=== PATIENT | male | born 1975 | race Caucasian/White ===

== ENCOUNTER 2018-08-02 06:28 | Day surgery (SDC) | payer OTHER ==
[2018-08-01 08:45] VITALS: BMI 30.7
[2018-08-02] MEDS ORDERED: ALPRAZolam 0.5 MG TAB PO PRN (06:43)
[2018-08-02] MEDS ORDERED: NITROGLYCERIN SL TABS 0.4 MG TAB SUBLINGUAL PRN (06:43)
[2018-08-02] MEDS ORDERED: ALPRAZolam 0.25 MG TAB PO PRN (06:43)
[2018-08-02] MEDS ORDERED: SODIUM CHLORIDE 0.9% 1,000 ML in EMPTY BAG 1 BAG IV ONE (06:43)
[2018-08-02] MEDS ORDERED: ASPIRIN 325 MG TAB PO ONE (07:00)
[2018-08-02] MEDS ORDERED: ATORVASTATIN 80 MG TAB PO ONE (07:00)
[2018-08-02] MEDS ORDERED: ALPRAZolam 0.25 MG TAB PO ONE (07:17)
[2018-08-02 07:21] LABS: Basophils # (A) 0.1 k/uL (0-0.2); Basophils % (A) 1 %; Eosinophils # (A) 0.2 k/uL (0-0.7); Eosinophils % (A) 3 %; HCT 45.3 % (39.0-53.0); HGB 15.1 gm/dL (13.0-17.5); Lymphocytes # (A) 2.4 k/uL (1.0-4.8); Lymphocytes % (A) 29 %; MCH 29.1 pg (25.0-35.0); MCHC 33.4 g/dL (31.0-37.0); MCV 87.1 fL (80.0-100.0); Mean Platelet Volume 6.4; Monocytes # (A) 0.5 k/uL (0-1.0); Monocytes % (A) 7 %; Neutrophils # (A) 4.9 k/uL (1.3-7.7); Neutrophils % (A) 60 %; Platelet Count 296 k/uL (150-450); RDW 14.1 % (11.5-15.5); WBC 8.3 k/uL (3.8-10.6)
[2018-08-02] MEDS ORDERED: fentaNYL (PF) 50 MCG/ML 2 ML AMP ONE (07:21)
[2018-08-02] MEDS ORDERED: LIDOCAINE 1% INJ 10MG/ML (20 ML MDV) ONE (07:21)
[2018-08-02 07:23] LABS: Anion Gap 9 mmol/L; Blood Urea Nitrogen 17 mg/dL (9-20); Calcium 9.5 mg/dL (8.4-10.2); Carbon Dioxide 24 mmol/L (22-30); Chloride 107 mmol/L (98-107); Glucose 112 mg/dL (74-99); Potassium 4.5 mmol/L (3.5-5.1); Sodium 140 mmol/L (137-145)
[2018-08-02 07:39] VITALS: TEMP 97.8
[2018-08-02] MEDS ORDERED: MIDAZOLAM 2 MG/2 ML VIAL IV ONE ×2 (07:43)
[2018-08-02] MEDS ORDERED: fentaNYL (PF) 50 MCG/ML 2 ML AMP IV ONE (07:43)
[2018-08-02] MEDS ORDERED: LIDOCAINE 1% INJ 10MG/ML (20 ML MDV) SQ ONE (07:44)
[2018-08-02] MEDS ORDERED: IOPAMIDOL-370 125ML BTL INJ ONE (07:54)
[2018-08-02] MEDS ORDERED: RX INFO: IV CONTRAST WAS GIVEN 1 EACH MISC MISCELLANE PRN (08:02)
[2018-08-02] MEDS ORDERED: SODIUM CHLORIDE 0.9% 1,000 ML IV SCH (08:15)
--- NOTE | 2018-08-02 08:25 | CC ---
CARDIAC CATHETERIZATION REPORT INDICATION: Chest pain with abnormal stress test. PROCEDURE NOTE: After obtaining informed consent, left heart catheterization and coronary angiogram were performed via the right femoral artery using standard Wilfrid catheters. The patient tolerated the procedure well without any obvious immediate complications. A femoral angiogram was performed and decision was made for manual hemostasis. Patient received moderate conscious sedation. Total sedation time was 14 minutes. FINDINGS: 1. HEMODYNAMICS: Left ventricular end-diastolic pressure is 12 mm. There is no significant gradient across the aortic valve. 2. LEFT VENTRICULOGRAM: Left ventriculogram is not performed. 3. ANGIOGRAPHIC DATA: Left main coronary artery: Left main coronary artery is a normal-sized vessel and is free of stenosis. Divides into left anterior descending coronary artery and circumflex coronary artery. LAD and its branches and circumflex coronary artery and its branches are free of significant stenosis. Right coronary artery is a large dominant vessel and is free of significant disease. CONCLUSIONS: 1. Normal coronary arteries. 2. Normal left ventricular end-diastolic pressure. PLAN: I reviewed test results with the patient and told him that his symptoms are noncardiac in origin and the stress test is a false positive stress test. MMODL / IJN: [id number] /
[2018-08-02 09:30] VITALS: PULSE 70
[2018-08-02 15:34] VITALS: BP 120/70; RESP 18
== END 2018-08-02 15:00 | disposition home or self-care (01) ==
LOC: CATHCVL 06:28
PROVIDERS: ATTEND Internal Medicine Cardiovascular Disease
DX: R07.2 Precordial pain (principal); R94.39 Abnormal result of other cardiovascular function study; E78.2 Mixed hyperlipidemia; F17.210 Nicotine dependence, cigarettes, uncomplicated; Z79.82 Long term (current) use of aspirin; Z79.899 Other long term (current) drug therapy; Z82.49 Family history of ischemic heart disease and other diseases of the circulatory system
CPT/HCPCS: 93458; 80048; 85025; C1894; C1769; J2250; J2001; J3010; Q9967

== ENCOUNTER → 2018-10-18 | Outpatient (CLI) | payer OTHER | LOC: LABWHC1 09:53 | PROVIDERS: ATTEND Internal Medicine Cardiovascular Disease | DX: E78.2 Mixed hyperlipidemia (principal) | CPT/HCPCS: 36415; 80061; 84450; 84460 ==

== ENCOUNTER → 2018-11-28 | Outpatient (CLI) | payer OTHER ==
[2018-11-28 20:47] LABS: ALT 26 U/L (10-49); AST 24 U/L (14-35)
== END ==
LOC: LABWHC1 10:23
PROVIDERS: ATTEND Internal Medicine Cardiovascular Disease
DX: E78.2 Mixed hyperlipidemia (principal)
CPT/HCPCS: 36415; 84450; 84460

== ENCOUNTER → 2020-02-10 | Outpatient (CLI) | payer OTHER ==
[2020-02-10 17:56] LABS: Chol/HDL Ratio 5.17
== END | disposition home or self-care (01) ==
LOC: LABWHC1 09:46
PROVIDERS: ATTEND Internal Medicine Cardiovascular Disease
DX: E78.2 Mixed hyperlipidemia (principal)
CPT/HCPCS: 36415; 80061; 84450; 84460

== ENCOUNTER 2024-03-03 14:57 | Emergency (ER) | payer OTHER ==
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
[2024-03-03 15:21] VITALS: RESP 18
--- NOTE | 2024-03-03 15:43 | XR ---
EXAMINATION TYPE: XR tibia fibula RT DATE OF EXAM: 03/03/2024 CLINICAL HISTORY: pain TECHNIQUE: AP and lateral images of the right tibia and fibula are obtained. COMPARISON: None. FINDINGS: There is no acute fracture/dislocation evident. The joint spaces appear within normal nation its. The overlying soft tissue appears unremarkable. IMPRESSION: There is no acute fracture or dislocation seen. ICD 10 NO FRACTURE, INITIAL EVALUATION
[2024-03-03 16:09] VITALS: BP 128/68; PULSE 72; TEMP 98.1
== END 2024-03-03 16:08 | disposition home or self-care (01) ==
LOC: EC 14:57
DX: S90.32XA Contusion of left foot, initial encounter (principal); F12.90 Cannabis use, unspecified, uncomplicated; W51.XXXA Accidental striking against or bumped into by another person, initial encounter
CPT/HCPCS: 99283

== ENCOUNTER 2024-11-27 08:30 | Emergency (ER) | payer OTHER ==
--- NOTE | 2024-11-27 08:55 | ED ---
General Adult HPI - General Chief complaint: Back Pain/Injury Stated complaint: low back pain,sliver in finger Time Seen by Provider: 11/27/24 08:32 Source: patient, RN notes reviewed, old records reviewed Mode of arrival: ambulatory Limitations: no limitations - History of Present Illness Initial comments: 9-year-old male presenting with low back pain which was initially bilaterally has isolated to the left side after moving a heavy recliner. This was about 5 or 6 days ago. Patient has had persistent pain shooting into the left leg. There was no injury or fall. Denies bowel or bladder incontinence. Denies fever. Secondary complaint of a wood sliver in his right fourth digit which has been present for the past 1 year. Patient is requesting this be removed. - Related Data Home Medications Medication Instructions Recorded Confirmed Aspirin [Adult Low Dose Aspirin EC] 81 mg PO DAILY 08/01/18 08/02/18 Atorvastatin [Lipitor] 40 mg PO DAILY 08/01/18 08/01/18 Metoprolol Succinate (ER) [Toprol 25 mg PO DAILY 08/01/18 08/01/18 Xl] Previous Rx's Medication Instructions Recorded Cephalexin [Keflex] 500 mg PO Q12HR #10 cap 11/27/24 Cyclobenzaprine [Flexeril] 10 mg PO HS #7 tab 11/27/24 Ibuprofen [Motrin] 600 mg PO Q8HR PRN #24 tab 11/27/24 Allergies Allergy/AdvReac Type Severity Reaction Status Date / Time No Known Allergies Allergy Verified 11/27/24 08:34 Review of Systems ROS Statement: Those systems with pertinent positive or pertinent negative responses have been documented in the HPI. ROS Other: All systems not noted in ROS Statement are negative. Past Medical History Past Medical History: Hyperlipidemia, Sleep Apnea/CPAP/BIPAP Additional Past Medical History / Comment(s): Right BBB,uses cpap History of Any Multi-Drug Resistant Organisms: None Reported Past Surgical History: Orthopedic Surgery Additional Past Surgical History / Comment(s): rt hand severed tendons,lt arm fx radius,ulna with plates and screws Past Anesthesia/Blood Transfusion Reactions: Previous Problems w/ Anesthesia, Postoperative Nausea & Vomiting (PONV) Additional Past Anesthesia/Blood Transfusion Reaction / Comment(s): hard time waking up after anesthesia Past Psychological History: No Psychological Hx Reported Past Alcohol Use History: Rare Past Drug Use History: Marijuana - Past Family History Mother Family Medical History: Myocardial Infarction ([place]) General Exam Limitations: no limitations General appearance: alert, in no apparent distress Head exam: Present: atraumatic, normocephalic Eye exam: Present: normal appearance, PERRL ENT exam: Present: normal exam Neck exam: Present: normal inspection. Absent: tenderness, meningismus Respiratory exam: Present: normal lung sounds bilaterally. Absent: respiratory distress, wheezes Cardiovascular Exam: Present: regular rate, normal rhythm GI/Abdominal exam: Present: soft. Absent: distended, tenderness, guarding Extremities exam: Present: other (Palpable foreign body in the right fourth digit distal phalanx no erythema no fluctuance, no induration) Back exam: Present: normal inspection. Absent: paraspinal tenderness, vertebral tenderness Neurological exam: Present: alert, oriented X3, CN II-XII intact. Absent: motor sensory deficit Psychiatric exam: Present: normal affect, normal mood Skin exam: Present: warm, dry, intact Course Vital Signs 11/27/24 08:32 Temperature 97.7 F Pulse Rate 99 Respiratory 22 Rate Blood Pressure 139/80 O2 Sat by Pulse 100 Oximetry Medical Decision Making - Medical Decision Making Was pt. sent in by a medical professional or institution (, PA, GRINDER SET UP OPERATOR, urgent care, hospital, or skilled nursing...) When possible be specific @ -No Did you speak to anyone other than the patient for history (EMS, parent, family, police, friend...)? What history was obtained from this source @ -No Did you review nursing and triage notes (agree or disagree)? Why? @ -I reviewed and agree with nursing and triage notes Were old charts reviewed (outside hosp., previous admission, EMS record, old EKG, old radiological studies, urgent care reports/EKG's, skilled nursing records)? Report findings @ -No old charts were reviewed Differential Back Pain: Strain, zoster, cauda equina syndrome, epidural abscess, vertebral osteomyelitis, discitis, fracture, subluxation, disc herniation, DJD, spinal stenosis, dissection, AAA, pancreatitis, peptic ulcer disease, pyelonephritis, kidney stone, this is not meant to be an all-inclusive list. EKG interpreted by me (3pts min.). @ -As above X-rays interpreted by me (1pt min.). @ -None done CT interpreted by me (1pt min.). @ -None done U/S interpreted by me (1pt. min.). @ -None done What testing was considered but not performed or refused? (CT, X-rays, U/S, labs)? Why? @ -None What meds were considered but not given or refused? Why? @ -None Did you discuss the management of the patient with other professionals (professionals i.e. Dr., PA, GRINDER SET UP OPERATOR, lab, RT, psych nurse, social media marketing manager, owner/operator, teacher, control officer manager, director of casework)? Give summary @ -No Was smoking cessation discussed for >3mins.? @ -No Was critical care preformed (if so, how long)? @ -No Were there social determinants of health that impacted care today? How? (Homelessness, low income, unemployed, alcoholism, drug addiction, transportation, low edu. Level, literacy, decrease access to med. care, half-way, rehab)? @ -No Was there de-escalation of care discussed even if they declined (Discuss DNR or withdrawal of care, Hospice)? DNR status @ -No What co-morbidities impacted this encounter? (DM, HTN, Smoking, COPD, CAD, Cancer, CVA, ARF, Chemo, Hep., AIDS, mental health diagnosis, sleep apnea, morbid obesity)? @ -None Was patient admitted / discharged? Hospital course, mention meds given and route, prescriptions, significant lab abnormalities, going to OR and other pertinent info. @ -49-year-old male with mechanical back pain after lifting a heavy recliner. Patient has no alarming features. He is prescribed muscle relaxer and Motrin. Secondary issue was of a foreign body in the right fourth digit this was removed in the emergency department. Patient was placed on prophylactic antibiotics. Undiagnosed new problem with uncertain prognosis? @ -No Drug Therapy requiring intensive monitoring for toxicity (Heparin, Nitro, Insulin, Cardizem)? @ -No Were any procedures done? @ -Yes, soft tissue foreign body removal Diagnosis/symptom? @ -Mechanical low back pain, wooden sliver right fourth digit Acute, or Chronic, or Acute on Chronic? @ -Yes Uncomplicated (without systemic symptoms) or Complicated (systemic symptoms)? @ -Default Side effects of treatment? @ -No Exacerbation, Progression, or Severe Exacerbation? @ -No Poses a threat to life or bodily function? How? (Chest pain, [place], [place], pneumonia, PE, COPD, DKA, ARF, appy, cholecystitis, CVA, Diverticulitis, Homicidal, Suicidal, threat to staff... and all critical care pts) @ -No Disposition Clinical Impression: Mechanical back pain Disposition: HOME SELF-CARE Condition: Fair Instructions (If sedation given, give patient instructions): Acute Low Back Pain (ED) Prescriptions: Cyclobenzaprine [Flexeril] 10 mg PO HS #7 tab Cephalexin [Keflex] 500 mg PO Q12HR #10 cap Ibuprofen [Motrin] 600 mg PO Q8HR PRN #24 tab PRN Reason: Pain Is patient prescribed a controlled substance at d/c from ED?: No Referrals: None,Stated [Primary Care Provider] - 1-2 days Time of Disposition: 08:54
[2024-11-27] MEDS: LIDOCAINE 1% INJ 10MG/ML (20 ML MDV) SQ ONE (08:58)
[2024-11-27 09:41] VITALS: BP 137/84; PULSE 90; RESP 18; TEMP 97.8
== END 2024-11-27 09:41 | disposition home or self-care (01) ==
LOC: EC 08:30
DX: S60.454A Superficial foreign body of right ring finger, initial encounter (principal); M54.50 Low back pain, unspecified; W45.8XXA Other foreign body or object entering through skin, initial encounter
CPT/HCPCS: 99283; J2003

== ENCOUNTER 2025-02-05 07:39 | Day surgery (SDC) | payer OTHER ==
[~2025-02-05 07:39] MED LIST: Pre Op ABX Message 1 EACH MISC MISCELLANE ONE
[2025-02-05] MEDS ORDERED: LIDOCAINE 1% (10MG/ML) FOR IV START INTRADERMA PRN (08:00)
[2025-02-05] MEDS ORDERED: HYDROmorphone 0.5 MG/0.5 ML SYRINGE IVP PRN (08:00)
[2025-02-05] MEDS: IV FLUID CONTINUATION 1,000 ML IV ONE (08:08)
[2025-02-05 08:19] VITALS: TEMP 96.5
[2025-02-05] MEDS: LACTATED RINGERS 1,000 ML IV SCH (08:34)
[2025-02-05] MEDS: DEXAMETHASONE SOD PHOSPHATE 4 MG/ML 1 ML VIAL IVP STA (08:46)
[2025-02-05] MEDS: ONDANSETRON 4 MG/2 ML VIAL IVP ONE (08:47)
[2025-02-05] MEDS ORDERED: PROPOFOL 10 MG/ML 20 ML VIAL IV ONE (09:10)
[2025-02-05] MEDS ORDERED: MIDAZOLAM 2 MG/2 ML VIAL ONE (09:10)
[2025-02-05] MEDS ORDERED: fentaNYL (PF) 50 MCG/ML 2 ML AMP ONE (09:10)
[2025-02-05] MEDS: SODIUM CHLORIDE 0.9% 50 ML with ceFAZolin 2,000 MG IV ONE (09:20)
[2025-02-05] MEDS: LIDOCAINE 2%-EPI 1:100,000 20 ML VIAL SQ ONE (09:23)
[2025-02-05 10:02] VITALS: BP 111/69; PULSE 71; RESP 16
--- NOTE | 2025-02-05 16:06 | P.OP ---
Date of Procedure: 02/05/25 Preoperative Diagnosis: right arm foreign body Postoperative Diagnosis: metal pin in arm Procedure(s) Performed: Excision of right arm foreign body Anesthesia: local Surgeon: Willis Almodovar Pathology: none sent Condition: stable Disposition: PACU Indications for Procedure: Right arm foreign body Operative Findings: Medical pain in right arm Description of Procedure: Patient was brought to the operating room where he was cleaned and draped in sterile fashion a timeout was performed and everyone agreed with the information resited next the patient was anesthetized using 2% lidocaine with epi and incision using a #15 blade was made 2 cm in length and electrocautery was used to dissect down to the muscle. It is where I encountered a metal pen I remove this using hemostats. It measured 2 cm in length the skin was closed using 4-0 Vicryl suture in a running fashion. The patient tolerated procedure well and was transported to PACU in stable condition
== END 2025-02-05 10:24 | disposition home or self-care (01) ==
LOC: OR 07:39
PROVIDERS: ATTEND Surgery
DX: S40.851A Superficial foreign body of right upper arm, initial encounter (principal)
CPT/HCPCS: 10120; J2250; J1100; J2405; J0690; J3010; J2704